=== PATIENT | male | born 1960 | race Caucasian/White ===

== ENCOUNTER 2018-01-21 09:10 | Emergency (ER) | payer MEDICARE, SELFPAY ==
[2018-01-21 09:20] VITALS: BP 122/99; PULSE 115; RESP 20; TEMP 36.6; O2SAT 97
--- NOTE | 2018-01-21 09:36 | ED.GENADUL ---
Disposition Clinical Impression: Splenic infarction, Renal infarction, RLQ abdominal pain Disposition: [facility] Condition: Stable Medical Decision Making - Medical Decision Making This is a 57-year-old male who presents for evaluation of abdominal pain for the last 2 days. There is some radiation towards the epigastric and chest region. He denies any cardiac history. He has not eaten anything for the last 2 days. Physical exam demonstrates the majority of his tenderness in the right lower quadrant abdominal region. No guarding or rebound though. The patient's age and symptoms am concerned for appendicitis , or intra-abdominal pathology. We will get a cardiac workup for evaluation of atypical chest pain. Patient's pain will be controlled, he will be rehydrated. EKG 9: 49 Rate 75 intervals normal, normal sinus rhythm. No ST elevations or depressions. No T-wave inversions. No significant Q waves. No abnormalities. 12 PM Patient's laboratory workup demonstrates a lactate of 1.8, troponin of 0.04. Mild white count slightly greater than 10. CT came back and I was contacted personally by the virtual radiologist who states that there is no acute process in the lungs, however in the abdomen and pelvis there is evidence of a splenic infarct as well as a bilateral renal infarct. He sees no signs of appendicitis, or other significant abnormalities. The radiologist is concerned that this pattern is indicative of thrombotic emboli causing infarction in these organs. He is concerned that there could be potential mesenteric ischemia causing the patient's current pain however the contrast was not angiographic for the abdomen at that time. Out of concern for radiology report demonstrating potential infarction of the gut, and certainly clear evidence of infarction of the organs of the gut, we have started heparin, and continue to rehydrate. We will get a dedicated CT angiogram of the mesenteric anatomy to evaluate for mesenteric ischemia. Patient's pain continues to be difficult to control. He has required a total of 8 of morphine and 1 mg of Dilaudid. Patient does not take any home narcotics. Out of concern for potential mesenteric ischemia with differential heightened secondary to radiologic findings I did contact [facility], and discussed the case with the ER physician, and the findings were relayed to vascular surgery, Dr. Kamara. They agreed to accept the patient for potential mesenteric ischemia. Patient will be transferred via ER to ER transfer, he has been started on heparin. We are still awaiting CT and your results at this time. I have extensively reviewed the treatment plan with the patient. I have addressed all patient concerns at this time. I have also discussed the plan with the admitting physician and they agree with the current assessment and plan and have agreed to assume responsibility for the patient. All parties demonstrate verbal understanding and agreement with our assessment and plan at this time. I was contacted again by Dr. Luke, the virtual radiologist in regards to results for the CT angiogram of the abdomen. He states that the repeat CT confirms ischemic component. Initially visualized on the previous CT, however he still shows no evidence of severe ischemia of the right lower quadrant. The main mesenteric arteries appear to be patent at this time. Even though the prior CT scan was over 2 hours ago, there is still no contrast in the infarcted regions of the spleen and kidneys. History of Present Illness - General Chief complaint: Abd Prob Stated complaint: ABD PAIN Time Seen by Provider: 01/21/18 09:28 - History of Present Illness Initial comments: 57-year-old male who presents for evaluation of abdominal pain. Patient states that over the last 2 days he has had nausea, epigastric and right lower quadrant abdominal pain, he has not eaten anything. He has had no vomiting or diarrhea. He denies any hematochezia, melena or acholic stool. The pain does radiate to the epigastric region, but he denies any significant chest pain. He denies any pleuritic or tearing sensation. He denies any arm shoulder or neck pain. Patient denies any associated shortness of breath or worsening exertional symptoms. He denies any previous abdominal surgeries. Past medical history is positive for Risperdal use, alcohol use which he quit utilizing 12 days ago, chronic tobacco marijuana use. He denies any previous cardiac history. He denies any IV or illicit drug use. He denies any pertinent family history. He denies any other past medical or surgical history. He has no other complaints at this time. - Related Data Risperidone 3 mg PO DAILY ml 09/11/13 Allergies Allergy/AdvReac Type Severity Reaction Status Date / Time Penicillins Allergy Mild Skin Rash Unverified 01/21/18 09:28 Review of Systems Other: 10 point review of systems was performed, pertinent positives and negatives are noted in the history of present illness. Past Medical History - Past Medical History kidney stones - Social History Alcohol use: occasionally Drug use: marijuana General Exam - Other Other exam information: 1.Const: Well-nourished, Well-developed, appearing stated age 2.Eyes: PERRL, no conjunctival injection, and symmetrical lids. 3.ENT: Atraumatic external nose and ears. Moist MM. Neck: Symmetric, trachea midline, No thyromegaly. 4.CVS: +S1/S2, No murmurs or gallops. Peripheral pulses 2+ and equal in all extremities. Brisk capillary refill in all extremities. 5.RESP: Unlabored respiratory effort. Mild crackles throughout. No wheezes rales or rhonchi 6.GI: Soft, no guarding or rebound. Reproducible pain in the right lower abdominal quadrant. No suprapubic pain. No significant pain of the epigastric region. No pulsatile abdominal mass. Negative obturator and psoas sign. Negative heel strike test. Negative Rovsing sign. No significant flank tenderness. No signs of trauma or bruising. 7.MSK: Normocephalic/Atraumatic, Extremities w/o deformity or ttp No cyanosis or clubbing, Normal movement of all extremities 8.Skin: Warm, Dry. No rashes or lesions. 9.Neuro: cottrell blower II-XII grossly intact. Sensation grossly intact, no focal neurologic deficits. 10.Psych: (AAO) x3. Appropriate mood and affect Course Vital Signs - 24 hr 01/21/18 09:20 Temperature 36.6 C Pulse 115 H Respiratory 20 Rate Blood Pressure 122/99 Pulse Oximetry 97
[2018-01-21 09:48] LABS: Lactate-non-spesis 1.8 mmol/L (0.6-1.4)
[2018-01-21 09:49] LABS: Abs Immature Grans 0.04 k/cumm (0.0-0.09); Absolute Basophil Count 0.03 k/cumm (0.0-0.2); Absolute Eosinophil Count 0.09 k/cumm (0.0-0.7); Absolute Lymphocyte Count 1.95 k/cumm (1.2-3.4); Absolute Monocyte Count 1.63 k/cumm (0.11-0.7); Absolute Neutrophil Count 7.11 k/cumm (1.2-6.7); Basophils % 0.3; Eosinophils % 0.8; HCT 48.8 % (40.0-50.0); HGB 16.8 g/dL (13.5-17.5); Immature Grans % 0.4; Mean Corp. HGB Concentration 34.4 g/dL (32.0-36.0); Mean Corpuscular Hemoglobin 35.4 pg (27.0-33.0); Neutrophils % 65.5; Platelet Count 332 x1000/uL (130-400); RBC 4.74 m/cumm (4.50-6.00); White Blood Cell Count 10.85 k/cumm (4.4-10.8)
[2018-01-21] MEDS: Normal Saline 1,000 ML 1000 ML IV ×2 (09:50→11:00)
[2018-01-21] MEDS: Ondansetron 4 MG/2 ML VIAL IVP (09:53)
[2018-01-21] MEDS: MORPHine 10 MG/ML VIAL 4 MG IVP ×2 (09:54→11:23)
[2018-01-21 10:02] LABS: Bilirubin Large (Negative); Blood Negative (Negative); Clarity Sl Cloudy; Glucose Negative (Negative); Ketones 40 mg/dL (Negative); Leukocyte Esterase Negative (Negative); Nitrite Negative (Negative); Specific Gravity 1.025 (1.005-1.025)
[2018-01-21 10:06] LABS: ALT 30 U/L (12-78); AST 26 U/L (15-37); Alkaline Phosphatase 98 U/L (46-116); Anion Gap 10.3 mmol/L (3-11); BUN 6 mg/dL (7-18); Bilirubin, Total 0.6 mg/dL (0.2-1.0); CO2 26.7 mmol/L (21.0-32.0); CREATININE 0.93 mg/dL (0.70-1.30); Chloride 99 mmol/L (98-107); Glucose 120 mg/dL (70-100); Potassium 4.2 mmol/L (3.5-5.1); Sodium 136 mmol/L (136-145); Total Protein 6.8 g/dL (6.4-8.2); Troponin I 0.04 ng/mL (0.00-0.06)
[2018-01-21 10:14] LABS: Epithelial Cells Negative HPF (Negative); RBC Negative (0-2); WBC 0-2 HPF (0-5)
[2018-01-21 10:14] LABS: Lipase 91 U/L (73-393); TSH 1.84 uIU/mL (0.358-3.74)
[2018-01-21 10:15] LABS: Bacteria Negative HPF (Negative); C & S Indicated? No; Casts Negative LPF (Negative); Crystals Negative HPF (Negative); Mucus Heavy (Negative)
--- NOTE | 2018-01-21 10:35 | DI.RPTCT_ITS ---
SYMPTOM/DIAGNOSIS: RLQ ABD PAIN, COUGH, NAUSEA, RENAL SPLENIC INFARCTS, ? ISCHEMIC GUT CHEST/ABDOMEN AND PELVIC CT: CT scan of the chest, abdomen and pelvis was performed following the uneventful administration of intravenous contrast material. ABDOMEN AND PELVIS: Comparison is made with prior examinations. There is diffuse decreased attenuation of the liver consistent with fatty infiltration. No evidence of a hepatic mass is seen. The gallbladder is negative by CT criteria. There is no biliary ductal dilatation. Calcifications are seen throughout the pancreas suggesting chronic calcific pancreatitis. No acute abnormality is seen of the pancreas. The adrenal glands are unremarkable. There are wedge shaped areas of decreased attenuation within the spleen extending to the splenic capsule. No perisplenic fluid collection is seen. There are bilateral wedge shaped areas of decreased attenuation within the kidneys bilaterally, most marked in the right kidney. The urinary bladder is intact. There does appear to be concentric bladder wall thickening. Differential considerations include chronic bladder outlet obstruction or inflammation such as cystitis. The prostate gland is enlarged. No significant abdominal or pelvic adenopathy, ascites or pneumoperitoneum is present. There is diverticulosis of the colon but no pericolonic inflammatory changes are seen to suggest acute diverticulitis. No evidence of bowel obstruction is seen. The appendix is unremarkable. There are degenerative changes seen in the lumbar spine and hips bilaterally. There is atherosclerosis of the abdominal aorta but no aneurysmal dilatation is seen. There is decreased attenuation seen in the left common iliac artery most suggestive of occlusion. The renal arteries appear patent as do the splenic artery, both superior and inferior mesenteric arteries. IMPRESSION: 1. Abnormality seen in the spleen and kidneys bilaterally suspicious for embolic infarcts. 2. Diverticulosis without evidence of acute diverticulitis. 3. Normal appendix. 4. Chronic calcific pancreatitis. CHEST: There is atherosclerosis of the thoracic aorta but no evidence of thoracic aortic dissection or aneurysm. No findings to suggest a pulmonary embolus are present. Heart size is within normal limits. No pericardial effusion is seen. No findings to suggest right ventricular dysfunction. No significant mediastinal or hilar adenopathy, pleural effusion or pneumothorax is identified. Dependent atelectatic changes are seen in the lung bases. Paraseptal and centrilobular emphysematous changes are seen in the lungs. Degenerative changes are seen in the spine. IMPRESSION: No acute pulmonary process. No findings to suggest pulmonary embolus or thoracic aortic dissection or aneurysm. Emphysema. CTA OF ABDOMEN AND PELVIS: CT angiography was performed with multi slice acquisition and multi planar and 3D reconstruction. Comparison is made with examination from earlier in the day. There is extensive atherosclerosis of the abdominal aorta and its runoff. There is occlusion of the left common iliac artery. The celiac axis is patent. The superior and inferior mesenteric arteries are patent. The renal arteries are patent. Note is again made of hepatic steatosis and chronic calcific pancreatitis. The wedge shaped defects seen in the spleen and kidneys appear stable. There is contrast seen within the urinary bladder. There is again seen diffuse thickening of the urinary bladder. This may be due to chronic bladder outlet obstruction or cystitis. The appendix is unremarkable. The bowel shows diverticulosis but no evidence of acute diverticulitis. No definite bowel wall thickening is present. No pneumatosis intestinalis is seen. IMPRESSION: 1. 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 2. Patent celiac axis and mesenteric arteries. Patent renal arteries. 3. No secondary signs of bowel ischemia.
[2018-01-21] MEDS: Omnipaque 350 MG/ML 100 ML BTL IJ ×2 (10:43→12:47)
[2018-01-21 10:45] VITALS: BP 126/78; PULSE 77; RESP 16; O2SAT 94
[2018-01-21] MEDS: Pantoprazole 40 MG VIAL IVP (11:24)
[2018-01-21] MEDS: Sucralfate 1 GM TAB PO (11:25)
[2018-01-21 11:53] VITALS: BP 134/77; PULSE 72; RESP 16; O2SAT 97
--- NOTE | 2018-01-21 11:59 | DI.VRAD_ITS ---
EXAM: CT Chest With Intravenous Contrast EXAM DATE/TIME: 01/21/2018 9:34 AM CLINICAL HISTORY: 57 years old, male; Chest pain; Cough TECHNIQUE: Axial computed tomography images of the chest with intravenous contrast. All CT scans at this facility use at least one of these dose optimization techniques: automated exposure control; mA and/or kV adjustment per patient size (includes targeted exams where dose is matched to clinical indication); or iterative reconstruction. Coronal and sagittal reformatted images were created and reviewed. CONTRAST: 100 ml of OMNI-PAQUE 350 administered intravenously. COMPARISON: CT CHEST 07/17/2013 FINDINGS: Lungs: There is bilateral paraseptal emphysema. There is minimal bilateral dependent atelectasis. No acute lung consolidation or pulmonary edema. Pleural space: No pleural effusion or pneumothorax. Heart: The heart is not enlarged. No pericardial effusion. There is coronary artery disease. Pulmonary arteries: No pulmonary embolism. Aorta: No thoracic aortic aneurysm or dissection. No branch vessel stenosis or occlusion. Lymph nodes: No pathologically enlarged lymph nodes. Bones/joints: Mild multilevel disc degeneration present in the thoracic spine. Soft tissues: Unremarkable. IMPRESSION: 1. No pulmonary embolism or aortic dissection. 2. Emphysema. No pneumonia. 3. Coronary artery disease. EXAM: CT Abdomen and Pelvis With Intravenous Contrast EXAM DATE/TIME: 01/21/2018 9:34 AM CLINICAL HISTORY: 57 years old, male; Epigastric pain; Right lower quadrant tenderness TECHNIQUE: Axial computed tomography images of the abdomen and pelvis with intravenous contrast. All CT scans at this facility use at least one of these dose optimization techniques: automated exposure control; mA and/or kV adjustment per patient size (includes targeted exams where dose is matched to clinical indication); or iterative reconstruction. Coronal and sagittal reformatted images were created and reviewed. CONTRAST: 100 ml of omni-paque 350 administered intravenously. COMPARISON: CT ABDOMEN/PELVIS 07/17/2013 FINDINGS: ABDOMEN: Liver: Liver is not enlarged. There is fatty change involving the liver parenchyma. Gallbladder and bile ducts: No calcified gallstones, gallbladder wall thickening, or pericholecystic inflammation. No biliary ductal dilation. Pancreas: Innumerable calcifications are present in the pancreas compatible with chronic calcific pancreatitis. No signs of acute pancreatitis. No pseudocyst formation. No pancreatic ductal dilatation. Spleen: The spleen is not enlarged. There are wedge and band-shaped areas of low attenuation within the spleen extending to the splenic capsule. Adrenals: No adrenal mass. Kidneys and ureters: There is left nephrolithiasis. No hydronephrosis on either side. There are multifocal peripheral areas of low attenuation, more prominent in the right kidney, extending to the renal capsule. Stomach and bowel: No bowel obstruction. There is diverticulosis, most prominent in the sigmoid colon, without diverticulitis. Appendix: The appendix has a normal caliber with no wall thickening. No periappendiceal stranding. PELVIS: Bladder: There is concentric bladder wall thickening which can be due to chronic bladder outlet obstruction or cystitis. Reproductive: The prostate measures about 4.8 cm transversely. ABDOMEN and PELVIS: Intraperitoneal space: No ascites or pneumoperitoneum. Bones/joints: Facet arthropathy present primarily at L3-L4. Minimal degenerative joint disease present in both hip joints. Soft tissues: Unremarkable. Vasculature: No abdominal aortic aneurysm. No iliac or common femoral artery aneurysm. The mesenteric arteries are patent. The renal arteries are patent. The mesenteric, portal, hepatic veins are patent. The renal veins are patent. Lymph nodes: Normal. No enlarged lymph nodes. IMPRESSION: 1. Splenic and bilateral renal embolic infarcts. 2. Normal appendix. 3. Diverticulosis without diverticulitis. 4. Chronic calcific pancreatitis. Dictated and Authenticated by: Reinaldo Frey MD. Ordering:NIVIA CROOK MD
[2018-01-21] MEDS: HYDROmorphone 2 MG/ML VIAL 1 MG IVP (12:23)
[2018-01-21 13:07] LABS: PTT Activated 26.8 sec (21.0-31.4)
[2018-01-21 13:16] VITALS: BP 116/71; PULSE 84; RESP 16; O2SAT 94
--- NOTE | 2018-01-21 13:32 | DI.VRAD_ITS ---
EXAM: CT Angiography Abdomen and Pelvis With Intravenous Contrast CLINICAL HISTORY: 57 years old, male; Renal/splenic infarcts; right lower quadrant pain TECHNIQUE: Axial computed tomographic angiography images of the abdomen and pelvis with intravenous contrast. All CT scans at this facility use at least one of these dose optimization techniques: automated exposure control; mA and/or kV adjustment per patient size (includes targeted exams where dose is matched to clinical indication); or iterative reconstruction. 3D and MIP reconstructed images were created and reviewed. CONTRAST: 75 mL of OMNI-PAQUE 350 administered intravenously. COMPARISON: CT ABDOMEN/PELVIS 01/21/2018 FINDINGS: VASCULATURE: Aorta: No abdominal aortic aneurysm, stenosis, occlusion, or dissection. Celiac trunk and mesenteric arteries: The central mesenteric arteries are widely patent. No distal branch occlusion in the right lower quadrant is identified. However, a small branch occlusion may not be detected on this exam. Renal arteries: There are single renal arteries bilaterally. No stenosis, occlusion, dissection, or aneurysm. Iliac arteries: There is occlusion of left common iliac artery, favored to be chronic due to the presence of extensive atherosclerotic plaque. The left external and internal iliac arteries are widely patent. There is atherosclerotic plaque involving the right common and internal iliac arteries without stenosis or occlusion. Lung bases: There is bilateral dependent atelectasis. ABDOMEN: Liver: The liver is not enlarged. There is fatty change involving the liver parenchyma. Gallbladder and bile ducts: No calcified gallstones, gallbladder wall thickening, or pericholecystic inflammation. No biliary ductal dilation. Pancreas: There are innumerable calcifications in the pancreas compatible with chronic calcific pancreatitis. No pancreatic ductal dilation. Spleen: The spleen is not enlarged. There are wedge and band-shaped areas of low-attenuation within the spleen extending to the splenic capsule. These have not opacified despite the fact that intravenous contrast was given for the prior exam. Adrenals: No adrenal mass. Kidneys and ureters: There is left nephrolithiasis. No hydronephrosis on either side. There continue to be multifocal peripheral areas of low attenuation, more prominent on the right, extending to the renal capsule. These have not opacified despite the fact that intravenous contrast was given for the prior exam. Stomach and bowel: No bowel obstruction. There is diverticulosis, most prominent in the sigmoid colon, without diverticulitis. No bowel wall thickening when allowing for lack of distention of the distal small bowel. No pneumatosis intestinalis. PELVIS: Appendix: The appendix has a normal caliber with no wall thickening. No periappendiceal stranding. Bladder: The bladder is filled with contrast. There is concentric bladder wall thickening which could be due to chronic bladder outlet obstruction or cystitis. Reproductive: The prostate measures 4.8 cm transversely. ABDOMEN and PELVIS: Intraperitoneal space: No ascites or pneumoperitoneum. Bones/joints: No acute osseous abnormality. Soft tissues: Unremarkable. Lymph nodes: No pathologically enlarged lymph nodes. IMPRESSION: 1. Splenic and bilateral renal embolic infarcts. 2. The main mesenteric arteries are widely patent. No distal mesenteric arterial branch occlusion is identified. 3. No secondary signs of bowel ischemia. 4. Normal appendix. 5. Diverticulosis without diverticulitis. Dictated and Authenticated by: Reinaldo Frye MD. Ordering:NIVIA CROOK MD
== END 2018-01-21 13:35 | disposition short-term general hospital (02) ==
PROVIDERS: Emergency Provider Student in an Organized Health Care Education/Training Program; PCP Family Medicine
DX: D73.5 Infarction of spleen (principal); N28.0 Ischemia and infarction of kidney; R10.31 Right lower quadrant pain; R10.13 Epigastric pain
CPT/HCPCS: 71260; 74174; 74177; 93005; 96361; 96365; 96375; 96376; 99285 ×2; J2270; J2405; 36410; 36415; 80053; 83690; 87040; 81003; 81015; 83605; 84443; 84484; 85025; 85730; 93010; J3490

== ENCOUNTER 2018-06-26 10:02 | Outpatient (REF) | payer MEDICARE, SELFPAY ==
[2018-06-26 13:40] LABS: HCT 51.7 % (40.0-50.0); Mean Corp. HGB Concentration 32.9 g/dL (32.0-36.0); Mean Corpuscular Hemoglobin 30.2 pg (27.0-33.0); Mean Platelet Volume 9.6 fL (8.0-11.0); Platelet Count 300 x1000/uL (130-400); RBC 5.62 m/cumm (4.50-6.00); RBC Distribution Width 14.3 % (11.8-14.1); White Blood Cell Count 8.93 k/cumm (4.4-10.8)
[2018-06-26 14:19] LABS: Vitamin D 25 Total 20.4 ng/ml (30-100)
[2018-06-26 14:24] LABS: ALT 11 U/L (12-78); AST 16 U/L (15-37); Albumin 3.8 g/dL (3.4-5.0); Alkaline Phosphatase 80 U/L (46-116); Anion Gap 7.7 mmol/L (3-11); BUN 6 mg/dL (7-18); Bilirubin, Total 0.4 mg/dL (0.2-1.0); CO2 31.3 mmol/L (21.0-32.0); CREATININE 0.97 mg/dL (0.70-1.30); Calcium 9.6 mg/dL (8.5-10.1); Chloride 101 mmol/L (98-107); Cholesterol 216 mg/dL (50-200); Ferritin 231 ng/mL (8-388); Glucose 93 mg/dL (70-100); HDL Cholesterol 60 mg/dL (40-60); LDL CHOLESTEROL 95 mg/dL (<100); Potassium 4.6 mmol/L (3.5-5.1); Sodium 140 mmol/L (136-145); Total Protein 7.3 g/dL (6.4-8.2); Triglyceride 192 mg/dL (30-150); Vitamin B12 677 pg/mL (193-986)
== END 2018-06-26 10:22 ==
LOC: NCHCN 10:02
PROVIDERS: PCP Family Medicine; Visit Provider Family Medicine
DX: E55.9 Vitamin D deficiency, unspecified (principal); E78.89 Other lipoprotein metabolism disorders; F10.10 Alcohol abuse, uncomplicated; G25.81 Restless legs syndrome; K70.10 Alcoholic hepatitis without ascites
CPT/HCPCS: 80053; 80061; 82306; 83721; 85027; 82607; 82728; 83735

== ENCOUNTER → 2018-07-03 08:59 | Outpatient (CLI) | payer MEDICARE, SELFPAY ==
--- NOTE | 2018-07-03 11:24 | MERGE_ITS ---
*[facility]* *[facility]* [address] [place] [address] Date of study: 07/03/2018 Transthoracic Echocardiography M-mode, complete 2D, complete spectral Doppler, and color Doppler *STUDY CONCLUSIONS* Summary: 1. Left ventricle: The cavity size was normal. Systolic function was mildly to moderately reduced. The estimated ejection fraction was 45%. Diffuse hypokinesis. There was no evidence of elevated ventricular filling pressure by Doppler parameters. 2. Mitral valve: There was mild regurgitation. 3. Right ventricle: The cavity size was normal. Wall thickness was normal. Systolic function was normal. 4. Atrial septum: No defect or patent foramen ovale was identified. 5. Pulmonary arteries: Pulmonary systolic pressure was in the range of 25mm Hg to 35mm Hg. 6. Inferior vena cava: The vessel was patent and normal in size. The respirophasic diameter changes were in the normal range (greater than or equal to 50%), consistent with normal central venous pressure. *PATIENT PRESENTATION* Height: 177.8cm ((70in) ) S/D Pressure: 100 / 61 Weight: 54kg ((118.7lb) ) BSA: 1.62m^2 Test start time: 10:30 AM. Test stop time: 11:30 AM. PERFORMING [facility] WAITSTAFF CAPTAIN RT Janet (R)(CT), [facility] ORDERING Martin Torres REFERRING Martin Torres Joh *PROCEDURE DATA* Procedure information: The patient was identified by two identifiers. This study was interpreted by [facility]. Pertinent images and digital data are archived for permanent storage and are available for subsequent review. No prior study was available for comparison. Study status: Routine. Transthoracic echocardiography. M-mode, complete 2D, complete spectral Doppler, and color Doppler. A Transthoracic Echocardiogram was performed. Scanning was performed from the parasternal, apical, subcostal, and suprasternal notch acoustic windows. Images were obtained using an [id number] cardiac ultrasound machine. Study completion: The patient tolerated the procedure well. History: PMH: 57 y/o M with h/o alcohol use disorder in remission, with micah renal and splenic embolic infarcts. colon iliac artery thrombosis. *CARDIAC ANATOMY* Left ventricle: The cavity size was normal. Systolic function was mildly to moderately reduced. The estimated ejection fraction was 45%. Diffuse hypokinesis. The tissue Doppler parameters were normal. There was no evidence of elevated ventricular filling pressure by Doppler parameters. Aortic valve: Trileaflet. Doppler: There was no stenosis. There was no significant regurgitation. VTI ratio of LVOT to aortic valve: 0.83. Valve area (VTI): 2.7cm^2. Indexed valve area (VTI): 1.7cm^2/m^2. Peak velocity ratio of LVOT to aortic valve: 0.85. Valve area (Vmax): 2.8cm^2. Indexed valve area (Vmax): 1.7cm^2/m^2. Mean velocity ratio of LVOT to aortic valve: 0.73. Valve area (Vmean): 2.4cm^2. Indexed valve area (Vmean): 1.5cm^2/m^2. Mean gradient (S): 1.9mm Hg. Peak gradient (S): 3.1mm Hg. Aorta: Aortic root: The aortic root was normal in size. Mitral valve: Doppler: There was no evidence for stenosis. There was mild regurgitation. Valve area by pressure half-time: 3.8cm^2. Indexed valve area by pressure half-time: 2.4cm^2/m^2. Left atrium: The atrium was normal in size. Atrial septum: No defect or patent foramen ovale was identified. Right ventricle: The cavity size was normal. Wall thickness was normal. Systolic function was normal. Pulmonic valve: Doppler: There was no evidence for stenosis. There was no significant regurgitation. Peak gradient (S): 2mm Hg. Tricuspid valve: Doppler: There was mild regurgitation. Pulmonary artery: Poorly visualized. Pulmonary systolic pressure was in the range of 25mm Hg to 35mm Hg. Right atrium: The atrium was normal in size. Pericardium: There was no pericardial effusion. Systemic veins: Inferior vena cava: Well visualized. The vessel was patent and normal in size. The respirophasic diameter changes were in the normal range (greater than or equal to 50%), consistent with normal central venous pressure. Baseline ECG: Normal sinus rhythm. Measurements Left ventricle Value Reference LV ID, ED, PLAX 4.5 cm 3.5 - 6.0 LV ID, ES, PLAX 3.6 cm 2.1 - 4.0 LV PW thickness, ED, PLAX 0.9 cm LV end-diastolic volume, 1-p A2C 67 ml LV ejection fraction, 1-p A2C 55 % LV end-diastolic volume, 1-p A4C 55 ml LV ejection fraction, 1-p A4C 48 % LV e', lateral 0.097 m/sec LV E/e', lateral 5 LV e', medial 0.084 m/sec LV E/e', medial 6 LV e', average 0.09 m/sec LV E/e', average 5 Ventricular septum Value Reference IVS thickness, ED, PLAX 1.0 cm LVOT Value Reference LVOT ID, A-P 2.0 cm LVOT area 3.3 cm^2 LVOT peak velocity, S 0.75 m/sec LVOT mean velocity, S 0.49 m/sec LVOT VTI, S 15.7 cm LVOT peak gradient, S 2.3 mm Hg LVOT mean gradient, S 1.1 mm Hg Stroke volume (SV), LVOT DP 51 ml Stroke index (SV/bsa), LVOT DP 32 ml/m^2 Aortic valve Value Reference Aortic valve peak velocity, S 0.9 m/sec Aortic valve mean velocity, S 0.67 m/sec Aortic valve VTI, S 19.0 cm Aortic mean gradient, S 1.9 mm Hg Aortic peak gradient, S 3.1 mm Hg VTI ratio, LVOT/AV 0.83 Aortic valve area, VTI 2.7 cm^2 Velocity ratio, peak, LVOT/AV 0.85 Aortic valve area, peak velocity 2.8 cm^2 Velocity ratio, mean, LVOT/AV 0.73 Aortic valve area, mean velocity 2.4 cm^2 Aortic valve area/bsa, mean velocity 1.5 cm^2/m^2 Aorta Value Reference Aortic root ID, ED 3.5 cm Left atrium Value Reference LA ID, A-P, ES 2.0 cm LA ID/bsa, A-P 1.2 cm/m^2 <=2.2 LA area, ES, A4C 11.7 cm^2 8.8 - 23.4 LA area, ES, A2C 11 cm^2 LA volume/bsa, ES, 1-p A4C 16 ml/m^2 LA volume, ES, 2-p 20 ml LA volume/bsa, ES, 2-p 12 ml/m^2 LA/aortic root ratio 0.56 Mitral valve Value Reference Mitral E-wave peak velocity 0.47 m/sec Mitral A-wave peak velocity 0.54 m/sec Mitral deceleration time 199 ms 150 - 230 Mitral pressure half-time 58 ms Mitral E/A ratio, peak 0.88 Mitral valve area, PHT, DP 3.8 cm^2 Tricuspid valve Value Reference Tricuspid regurg peak velocity 2.5 m/sec Tricuspid peak RV-RA gradient 25.1 mm Hg Right atrium Value Reference RA area, ES, A4C 12.2 cm^2 8.3 - 19.5 Pulmonic valve Value Reference Pulmonic peak gradient, S 2 mm Hg Legend: (L) and (H) marianne values outside specified reference range. I have personally reviewed the images and have reviewed and edited the reported findings. Electronically signed by Carl Garcia MD 07/03/2018 17:40
--- NOTE | 2018-07-03 15:39 | DI.CT_ITS ---
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 Comparison is made with January,. Calcification and mural thickening are seen involving the abdominal aorta, greater distally. The findings are more severe in the iliac arteries. The left iliac artery again shows proximal occlusion. The celiac axis and SMA and its branches are patent. There is no significant stenosis or calcification. There is no significant stenosis at the origins of the renal arteries. The renal arteries appear intact and normal diameter throughout, without visible calcification or mural irregularity. Several small focal areas of scarring are seen in both kidneys. There is also an area of scarring seen at the superior portion of the spleen in the area of the previously noted infarct. The splenic vein is not yet opacified with IV contrast. Calcifications are again noted in the pancreas. IMPRESSION: Stable atherosclerotic changes of the abdominal aorta. No evidence of significant narrowing of the renal arteries, SMA or celiac arteries.
== END ==
PROVIDERS: PCP Family Medicine; Visit Provider Family Medicine
DX: D73.5 Infarction of spleen (principal); N28.0 Ischemia and infarction of kidney; I74.5 Embolism and thrombosis of iliac artery; I34.0 Nonrheumatic mitral (valve) insufficiency; F10.21 Alcohol dependence, in remission
CPT/HCPCS: 71275; 93306

== ENCOUNTER 2018-11-08 14:59 | Outpatient (CLI) | payer MEDICARE, SELFPAY ==
[2018-11-08 15:29] LABS: CREATININE 1.04 mg/dL (0.70-1.30)
[2018-11-09 08:34] LABS: BUN 11 mg/dL (7-18)
== END 2018-11-08 15:19 ==
PROVIDERS: Otolaryngology Otolaryngology/Facial Plastic Surgery; PCP Family Medicine; Visit Provider Family Medicine
DX: J35.8 Other chronic diseases of tonsils and adenoids (principal); R06.2 Wheezing; R07.0 Pain in throat; Z13.89 Encounter for screening for other disorder; Z01.812 Encounter for preprocedural laboratory examination
CPT/HCPCS: 36415; 84520; 82565

== ENCOUNTER 2018-11-09 01:18 | Outpatient (CLI) | payer MEDICARE, SELFPAY ==
--- NOTE | 2018-11-09 08:32 | DI.RAD_ITS ---
SYMPTOM/DIAGNOSIS: THROAT DISCOMFORT, ASYMMETRIC TONSILS, WHEEZING, SMOKING HISTORY, R07.0,J35.8,R06.02,Z87.891 PA AND LATERAL CHEST: There is some faint increased density projected over the lower thorax on the right side, presumably representing overlying soft tissues. There is no definite infiltrate. There is no pleural effusion. The cardiovascular structures appear intact. SUMMARY: No evidence of acute cardiopulmonary disease.
[2018-11-09] MEDS: Omnipaque 350 MG/ML 100 ML BTL IJ (09:33)
--- NOTE | 2018-11-09 10:00 | DI.CT_ITS ---
SYMPTOMS/DIAGNOSIS: THROAT DISCOMFORT, ASYMMETRIC TONSILS, WHEEZING, SMOKING HX, R07.0, J35.8, R06.2, Z87.891 CT EXAMINATION OF THE NECK: The study was carried out according to the usual protocol with an intravenous administration of 100 cc's of Omnipaque 350. There are small calcifications in the left tonsil. No gross mass is identified in the mo or hypopharynx. The epiglottis and aryepiglottic folds are intact. Thickening of the vocal cords is evident. There is no definite mass. There is no evidence of adenopathy. The thyroid gland appears normal. Note is made of moderately severe degenerative changes involving the mid and lower cervical spine. SUMMARY: Calcifications are identified in the left tonsil. There is no definite right or left tonsillar mass. Vocal cord thickening is demonstrated. No definite mass is identified. There is no evidence of adenopathy. The thyroid gland is normal.
== END 2018-11-09 01:38 ==
PROVIDERS: PCP Family Medicine; Visit Provider Otolaryngology Otolaryngology/Facial Plastic Surgery
DX: R07.0 Pain in throat (principal); R06.02 Shortness of breath; R06.2 Wheezing; Z87.891 Personal history of nicotine dependence; J38.3 Other diseases of vocal cords; J35.8 Other chronic diseases of tonsils and adenoids
CPT/HCPCS: 70491; 71046; J3490

== ENCOUNTER 2019-04-11 08:50 | Outpatient (CLI) | payer MEDICARE, SELFPAY ==
[2019-04-11 09:16] LABS: Abs Immature Grans 0.02 k/cumm (0.0-0.09); Absolute Basophil Count 0.06 k/cumm (0.0-0.2); Absolute Eosinophil Count 0.38 k/cumm (0.0-0.7); Absolute Lymphocyte Count 2.84 k/cumm (1.2-3.4); Absolute Monocyte Count 0.74 k/cumm (0.11-0.7); Absolute Neutrophil Count 5.35 k/cumm (1.2-6.7); Basophils % 0.6; HCT 45.7 % (40.0-50.0); HGB 15.1 g/dL (13.5-17.5); Immature Grans % 0.2; Lymphocytes % 30.2; Mean Corpuscular Volume 90.9 fL (80-95); Mean Platelet Volume 8.7 fL (8.0-11.0); Monocytes % 7.9; Neutrophils % 57.1; Platelet Count 291 x1000/uL (130-400); RBC 5.03 m/cumm (4.50-6.00); RBC Distribution Width 14.1 % (11.8-14.1); White Blood Cell Count 9.39 k/cumm (4.4-10.8)
[2019-04-11 13:29] LABS: ALT 15 U/L (16-63); AST 13 U/L (15-37); Albumin 3.5 g/dL (3.4-5.0); Alkaline Phosphatase 56 U/L (46-116); Anion Gap 7.8 mmol/L (3-11); BUN 12 mg/dL (7-18); Bilirubin, Total 0.4 mg/dL (0.2-1.0); CO2 28.2 mmol/L (21.0-32.0); CREATININE 1.08 mg/dL (0.70-1.30); Calcium 8.8 mg/dL (8.5-10.1); Calculated LDL 84 mg/dL; Chloride 104 mmol/L (98-107); Cholesterol 157 mg/dL (50-200); Glucose 93 mg/dL (70-100); HDL Cholesterol 43 mg/dL (40-60); Potassium 5.1 mmol/L (3.5-5.1); Sodium 140 mmol/L (136-145); Total Protein 6.4 g/dL (6.4-8.2); Triglyceride 154 mg/dL (30-150); Vitamin B12 592 pg/mL (193-986)
[2019-04-13 15:47] LABS: 25-Hydroxy D Total 62 ng/mL; 25-Hydroxy D2 <4.0 ng/mL; 25-Hydroxy D3 62 ng/mL
== END 2019-04-11 09:10 ==
PROVIDERS: PCP Family Medicine; Visit Provider Nurse Practitioner Family
DX: F20.9 Schizophrenia, unspecified (principal); Z79.899 Other long term (current) drug therapy; E55.9 Vitamin D deficiency, unspecified
CPT/HCPCS: 36415; 80053; 80061; 82306; 82607; 85025

== ENCOUNTER 2021-03-02 04:12 | Outpatient (CLI) | payer MEDICARE, SELFPAY ==
[2021-03-02 10:29] LABS: Abs Immature Grans 0.02 10^3/uL (0.0-0.06); Absolute Basophil Count 0.07 10^3/uL (0.0-0.2); Absolute Eosinophil Count 0.03 10^3/uL (0.0-0.7); Absolute Lymphocyte Count 1.73 10^3/uL (1.2-3.4); Absolute Neutrophil Count 5.06 10^3/uL (1.2-6.7); Basophils % 0.9; Eosinophils % 0.4; HCT 47.4 % (40.0-50.0); HGB 16.1 g/dL (13.5-17.5); Immature Grans % 0.3; Lymphocytes % 22.4; MPV 9.5 fL (8.0-11.0); Monocytes % 10.4; Neutrophils % 65.6; Nucleated RBC 0 %; Platelet Count 222 10^3/uL (130-400); RBC 4.74 10^6/uL (4.36-5.78); RDW 13.1 % (11.8-14.1); RDW-SD 48.3 fL; WBC 7.71 10^3/uL (4.4-10.8)
[2021-03-02 10:46] LABS: Hemoglobin A1C 4.9 % (<5.7)
[2021-03-02 11:15] LABS: Magnesium 1.7 mg/dL (1.8-2.4)
[2021-03-02 11:46] LABS: ALT 76 U/L (16-63); AST 98 U/L (15-37); Albumin 3.5 g/dL (3.4-5.0); Alkaline Phosphatase 166 U/L (46-116); Anion Gap 14.8 mmol/L (3-11); BUN 7 mg/dL (7-18); Bilirubin, Total 0.6 mg/dL (0.2-1.0); CO2 27.2 mmol/L (21.0-32.0); CREATININE 1.1 mg/dL (0.70-1.30); Calculated LDL 50 mg/dL (<100); Chloride 97 mmol/L (98-107); Cholesterol 203 mg/dL (<200); Ferritin 498 ng/mL (26-388); Glucose 113 mg/dL (74-106); HDL Cholesterol 135 mg/dL (40-60); Potassium 3.4 mmol/L (3.5-5.1); Sodium 139 mmol/L (136-145); Triglyceride 94 mg/dL (<150); Vitamin B12 1873 pg/mL (193-986)
[2021-03-02 12:02] LABS: C-Reactive Protein 0.21 mg/dL (0.0-0.3); FREE T4 0.96 ng/dL (0.76-1.46)
[2021-03-02 12:14] LABS: Vitamin D 25 Total 102.9 ng/mL (30-100)
== END 2021-03-02 04:13 | disposition home or self-care (01) ==
LOC: LBO 04:12
PROVIDERS: PCP Family Medicine; Visit Provider Psychiatry & Neurology Psychiatry
DX: F20.9 Schizophrenia, unspecified (principal); Z79.899 Other long term (current) drug therapy
CPT/HCPCS: 36415; 80053; 80061; 82306; 86900; 86901; 82607; 82728; 83036; 83735; 84439; 84481; 85025; 86140